=== PATIENT | male | born 1990 ===

== ENCOUNTER 2017-01-09 12:50 | Emergency (ER) | payer SELFPAY ==
[2017-01-09] MEDS ORDERED: Aluminum Hydroxide/Magnesium Hydroxide Susp (30 mL) PO STA (13:37)
[2017-01-09] MEDS ORDERED: Lidocaine 2% Viscous 100 ml PO STA (13:37)
[2017-01-09] MEDS ORDERED: Aluminum Hydroxide/Magnesium Hydroxide Susp (30 mL) ONE (13:44)
--- NOTE | 2017-01-09 14:02 | C.PDOC ---
History Of Present Illness 26-year-old male, presents to the emergency department with complaints of epigastric abdominal pain that worsens after eating. Patient notes associated nausea, and is taking Omeprazole with minimal relief. No vomiting or diarrhea. Secondary complaint is an itchy rash on chest that is spreading. No abdominal tenderness. No chest pain, or any other associated symptoms. No other complaints at this time. Time Seen by Provider: 01/09/17 13:32 Chief Complaint (Nursing): Abdominal Pain History Per: Patient History/Exam Limitations: no limitations Onset/Duration Of Symptoms: Days Past Medical History Reviewed: Historical Data, Nursing Documentation, Vital Signs Vital Signs: Last Vital Signs Temp 97.8 F 01/09/17 14:08 Pulse 65 01/09/17 14:08 Resp 20 01/09/17 14:08 BP 122/77 01/09/17 14:08 Pulse Ox 98 01/09/17 14:36 - Medical History PMH: Gastritis Family History: States: No Known Family Hx - Social History Hx Alcohol Use: Yes Hx Substance Use: Yes Review Of Systems Except As Marked, All Systems Reviewed And Found Negative. Constitutional: Negative for: Fever Cardiovascular: Negative for: Chest Pain, Palpitations Respiratory: Negative for: Shortness of Breath Gastrointestinal: Positive for: Abdominal Pain. Negative for: Nausea, Vomiting , Diarrhea, Constipation Musculoskeletal: Negative for: Back Pain Skin: Positive for: Rash Physical Exam - Physical Exam Appears: Non-toxic, No Acute Distress Skin: Rash (scaly annular lesion to right upper chest wall and similar lesions to lower abdomen and right thigh. ) Head: Atraumatic, Normacephalic Eye(s): bilateral: Normal Inspection Nose: Normal Oral Mucosa: Moist Neck: Normal ROM Chest: Symmetrical Cardiovascular: Rhythm Regular Respiratory: Normal Breath Sounds, No Accessory Muscle Use, No Wheezing Gastrointestinal/Abdominal: Bowel Sounds (active), Soft, No Tenderness, No Mass , No Distention, No Guarding Extremity: Normal ROM Neurological/Psych: Oriented x3, Normal Speech ED Course And Treatment O2 Sat by Pulse Oximetry: 98 Medical Decision Making Medical Decision Making: Impression: Epigastric pain c.w gastritis, itchy rash on chest c.w tinea Plan: * Maalox, Lidocaine, Pepcid, Zofran Re-eval: abdominal pain improved. no signs of acute abdomen or surgical pathology patient stable for discharge Disposition Counseled Patient/Family Regarding: Rx Given - Disposition Disposition: HOME/ ROUTINE Disposition Time: 13:59 Condition: STABLE Additional Instructions: Aplicar crema dos veces al da [place] los medicamentos necesarios para el dolor abdominal Continuar con omeprazol para gastritis Prescriptions: Dicyclomine [Dicyclomine HCl] 10 mg PO QID #20 cap Ketoconazole 2% Cr [Nizoral] 15 gm EXT BID #1 tube Instructions: Gastritis (DC), Tinea Corporis (ED) Print Language: YAKUT - POA Present On Arrival: None - Clinical Impression Clinical Impression: Gastritis, Tinea corporis - Scribe Statement The provider has reviewed the documentation as recorded by the Eric Hendricks All medical record entries made by the Marioibblack were at my direction and personally dictated by me. I have reviewed the chart and agree that the record accurately reflects my personal performance of the history, physical exam, medical decision making, and the department course for this patient. I have also personally directed, reviewed, and agree with the discharge instructions and disposition.
[2017-01-09 14:09] VITALS: BP 122/77; PULSE 65; RESP 20; TEMP 97.8
[2017-01-09 14:34] VITALS: O2SAT 98
== END 2017-01-09 14:08 | disposition home or self-care (01) ==
LOC: C.ER 12:50
DX: K29.70 Gastritis, unspecified, without bleeding (principal); B35.4 Tinea corporis

== ENCOUNTER 2017-02-05 11:12 | Emergency (ER) | payer SELFPAY ==
[2017-02-05 11:49] VITALS: BP 107/68; PULSE 67; RESP 18; TEMP 97.6; O2SAT 95
[2017-02-05] MEDS ORDERED: Belladonna-Phenobarbital PO STA (12:15)
[2017-02-05] MEDS ORDERED: Aluminum Hydroxide/Magnesium Hydroxide Susp (30 mL) PO STA (12:15)
[2017-02-05] MEDS ORDERED: Lidocaine 2% Viscous 100 ml PO STA (12:15)
[2017-02-05] MEDS ORDERED: Sodium Chloride 0.9% 1,000 ML IV ONE (12:16)
--- NOTE | 2017-02-05 12:53 | C.PDOC ---
History Of Present Illness PT LEFT WITHOUT BEING SEEN Chief Complaint (Nursing): Abdominal Pain Past Medical History Vital Signs: Last Vital Signs Temp 97.6 F 02/05/17 11:45 Pulse 67 02/05/17 11:45 Resp 18 02/05/17 11:45 BP 107/68 02/05/17 11:45 Pulse Ox 95 02/05/17 12:53 - Medical History PMH: Gastritis Family History: States: No Known Family Hx - Social History Hx Alcohol Use: Yes Hx Substance Use: Yes - Immunization History Hx Tetanus Toxoid Vaccination: No ED Course And Treatment O2 Sat by Pulse Oximetry: 95 Medical Decision Making Medical Decision Making: PT LEFT WITHOUT BEING SEEN Disposition - Disposition Disposition: LEFT W/O BEING SEEN - ER ONLY Disposition Time: 13:00 Condition: UNKNOWN - Clinical Impression Clinical Impression: Vomiting
== END 2017-02-05 12:16 | disposition left against medical advice (07) ==
LOC: C.ER 11:12
DX: R11.10 Vomiting, unspecified (principal); Z02.9 Encounter for administrative examinations, unspecified